=== PATIENT | female | born 1990 | race Caucasian/White ===

== ENCOUNTER 2018-03-16 | Emergency (ER) | payer MEDICAID, OTHER ==
[~2018-03-16] VITALS: Ht 172.7 cm; Wt 127.0 kg
[2018-03-16 00:07] VITALS: BP 133/72
[2018-03-16] MEDS ORDERED: ALBUTEROL FS 2.5 MG/0.5 ML VIAL.NEB NEB ONE (02:00)
[2018-03-16] MEDS ORDERED: ALBUTEROL FS 2.5 MG/0.5 ML VIAL.NEB ONE (03:35)
== END 2018-03-16 04:15 | disposition home or self-care (01) ==
LOC: ER 00:05
DX: J98.01 Acute bronchospasm (principal); R05 Cough; F10.10 Alcohol abuse, uncomplicated; F17.200 Nicotine dependence, unspecified, uncomplicated
CPT/HCPCS: 71045-TC; A4606; Z7610

== ENCOUNTER 2018-12-15 16:40 | Emergency (ER) | payer SELFPAY ==
[~2018-12-15] VITALS: Ht 167.6 cm; Wt 129.3 kg
--- NOTE | 2018-12-15 17:02 | NUR ---
PT BIB SELF C/O FLU LIKE SX; DC'D FROM [facility] LAST NIGHT, SAME SX TODAY, PT IS AAOX4, TEMP OF 103.6, NOT IN RESPIRATORY DISTRESS, KEPT RESTED AND COMFORTABLE.
--- NOTE | 2018-12-15 17:25 | NUR ---
SEEN AND EXAMINED BY PANKAJ PEÑALOZA
[2018-12-15] MEDS ORDERED: IV NS 0.9% 1,000 ML BAG IV ONE (17:30)
[2018-12-15] MEDS ORDERED: ACETAMINOPHEN 325 MG TABLET PO ONE (17:30)
[2018-12-15] MEDS ORDERED: IBUPROFEN 400 MG TABLET PO ONE (17:30)
[2018-12-15] MEDS ORDERED: ACETAMINOPHEN ES 500 MG TABLET ONE (17:33)
[2018-12-15] MEDS ORDERED: IBUPROFEN 400 MG TABLET ONE ×2 (17:33→17:34)
--- NOTE | 2018-12-15 17:50 | NUR ---
RAPID INFLUENZA TAKEN AND SENT TO LAB.
[2018-12-15 18:19] VITALS: BP 124/76
[2018-12-15] MEDS ORDERED: OSELTAMIVIR PHOSPHATE 75 MG CAPSULE ONE (18:39)
--- NOTE | 2018-12-15 18:56 | NUR ---
IV removed. Catheter intact and site benign. Pressure and 4x4 applied to site. No bleeding noted. Patient discharged to home in stable condition. Written and verbal after care instructions given. Patient verbalizes understanding of instruction.
[2018-12-15] MEDS ORDERED: OSELTAMIVIR PHOSPHATE 75 MG CAPSULE PO ONE (19:00)
== END 2018-12-15 20:06 | disposition home or self-care (01) ==
LOC: ER 16:41
DX: J11.1 Influenza due to unidentified influenza virus with other respiratory manifestations (principal); E86.0 Dehydration; F17.200 Nicotine dependence, unspecified, uncomplicated
CPT/HCPCS: 87804 ×2; 96360; 99284; A4606; J7030; 87400

== ENCOUNTER 2018-12-24 20:19 | Emergency (ER) | payer SELFPAY ==
[~2018-12-24] VITALS: Ht 172.7 cm; Wt 127.0 kg
--- NOTE | 2018-12-24 20:50 | NUR ---
PT PRESENTED TO THE ER WITH A C/O NAUSEA AND DI[employer]HEA [employer]. PT IS ALSO C/O SOB WITH COUGH/CONGESTION. PT STATED THAT SHE HAS NAUSEA, BUT NO VOMITTING. PT IS ALSO C/O A "CYST" ON HER LABIA X 2 DAYS. PT STATED THAT SHE WAS TREATED FOR THE FLU AND FINISHED THE TAMIFLU. PT HAS BEEN TAKING OTC MEDICATION S/P FLU. PT STATED THAT SHE GOT THE FLU AND HER PERIOD AT THE SAME TIME. PT STATED THAT SHE DID NOT HAVE HER PERIOD PRIOR TO THIS LAST ONE AND IS ON AN IUD. PT STATED THAT THIS IS IRREGULAR FOR HER.
[2018-12-24 21:32] LABS: APPEARANCE,URINE Clear (CLEAR); BILIRUBIN,URINE Negative (NEGATIVE); BLOOD, URINE Trace-lysed Ery/uL (NEGATIVE); COLOR,URINE Yellow (YELLOW); KETONES,URINE Negative (NEGATIVE); LEUKOCYTE ESTERASE ,URINE Negative (NEGATIVE); NITRITE, URINE Negative (NEGATIVE); PROTEIN,URINE Negative (NEGATIVE); UGLUCOSE Negative (NEGATIVE); UROBILINOGEN,URINE 0.2 EU/dL (0.2)
[2018-12-24 21:34] LABS: WBC,URINE 0-2 /HPF (0-3)
[2018-12-24 21:45] LABS: BACTERIA,URINE Few /HPF (None Seen); SQUAMOUS EPITHELIAL CELL,UR Few /HPF (None Seen)
--- NOTE | 2018-12-24 21:47 | NUR ---
VAGINAL EXAM AT THE BEDSIDE IN PROGRESS BY JONN MEEHANP-ELLIE.
[2018-12-24] MEDS ORDERED: HYDROCODONE BIT/HOMATROPINE 5 ML UDC ONE (21:55)
[2018-12-24] MEDS ORDERED: HYDROCODONE BIT/HOMATROPINE 5 ML UDC PO ONE (22:00)
--- NOTE | 2018-12-24 22:33 | NUR ---
CALLED [facility]: CXR READ
[2018-12-24] MEDS ORDERED: LIDOCAINE HCL/MPF 1% 30 ML VIAL IJ ONE (22:40)
[2018-12-24] MEDS ORDERED: DOXYCYCLINE HYCLATE (100 MG) 100 MG TABLET ONE (23:10)
[2018-12-24] MEDS ORDERED: IBUPROFEN 600 MG TABLET PO ONE ×2 (23:10→23:30)
--- NOTE | 2018-12-24 23:18 | NUR ---
I & D IN PROGRESS AT THE BEDSIDE WITH US.
[2018-12-24 23:28] VITALS: BP 130/80
--- NOTE | 2018-12-24 23:28 | NUR ---
Patient discharged to home in stable condition. Written and verbal after care instructions given. Patient verbalizes understanding of instruction AND RX. PT REC'D MEDICATION ORDERED PRIOR TO DC. PT REC'D 4X4'S AND 3 OB PADS, AN EMESIS BASIN AND A BED HERNANDEZ TO ASSIST WITH SOAKING WOUND. PT WAS UNABLE TO PUT CLOTHING ON NEAR THE WOUND AND REC'D CHUX TO PUT ON THE CAR SEAT FOR THE TRIP HOME. PT AMBULATED OUT WITH A SLOW STEADY GAIT. VSS. PT'S BOYFRIEND IS DRIVING PT HOME.
[2018-12-24] MEDS ORDERED: DOXYCYCLINE HYCLATE (100 MG) 100 MG TABLET PO ONE (23:30)
== END 2018-12-24 23:30 | disposition home or self-care (01) ==
LOC: ER 20:19
DX: L02.214 Cutaneous abscess of groin (principal); L03.314 Cellulitis of groin; J40 Bronchitis, not specified as acute or chronic; F17.200 Nicotine dependence, unspecified, uncomplicated
CPT/HCPCS: 10060; 71045; 81001; 84703; 99284; A4606; A6402 ×2; J3490; 81000-TC

== ENCOUNTER 2019-08-03 01:22 | Emergency (ER) | payer MEDICAID ==
[~2019-08-03] VITALS: Ht 172.7 cm; Wt 141.5 kg
--- NOTE | 2019-08-03 02:18 | NUR ---
CALLED PT NAME IN WR X3. NO ONE RESPONDED. WILL FOLLOW UP
[2019-08-03 02:47] VITALS: BP 125/73
[2019-08-03] MEDS ORDERED: PSEUDOEPHEDRINE HCL 30 MG TABLET ONE (03:46)
[2019-08-03] MEDS ORDERED: PSEUDOEPHEDRINE HCL 30 MG TABLET PO ONE (04:00)
== END 2019-08-03 03:48 | disposition home or self-care (01) ==
LOC: ER 01:24
DX: H60.92 Unspecified otitis externa, left ear (principal); H61.21 Impacted cerumen, right ear; F17.200 Nicotine dependence, unspecified, uncomplicated

== ENCOUNTER 2023-05-23 03:06 | Emergency (ER) | payer MEDICAID, OTHER ==
[~2023-05-23] VITALS: Ht 172.7 cm; Wt 144.7 kg
[2023-05-23 03:56] VITALS: BP 133/81; TEMP 98.1; O2SAT 99
--- NOTE | 2023-05-23 03:59 | NUR ---
BIBSELF FROM WORK C/O BILAT EYE PAIN & BLURRED VISION. USING RX ATB EYE EYE OINTMENT WITH NO RELIEF. PT A/OX4. TOLERATING R/A WELL WITH NO RESP DISTRESS.
--- NOTE | 2023-05-23 04:17 | NUR ---
EVALUATED BY DR WARNER
[2023-05-23] MEDS ORDERED: OLOP2.5D12 EACHEYE (04:21)
--- NOTE | 2023-05-23 04:34 | NUR ---
Patient discharged to home in stable condition. Rx Written and verbal after care instructions given. Patient verbalizes understanding of instruction.
== END 2023-05-23 04:35 | disposition home or self-care (01) ==
LOC: ER 03:14
DX: H10.9 Unspecified conjunctivitis (principal); F17.200 Nicotine dependence, unspecified, uncomplicated; Z60.2 Problems related to living alone

== ENCOUNTER 2023-07-07 23:29 | Emergency (ER) | payer OTHER ==
[~2023-07-07] VITALS: Ht 172.7 cm; Wt 138.3 kg
[~2023-07-07 23:29] MED LIST: OLOP2.5D12 EACHEYE
[2023-07-07 23:42] VITALS: BP 148/79; TEMP 98.3; O2SAT 98
[2023-07-07 23:55] LABS: APPEARANCE,URINE CLEAR (CLEAR); BILIRUBIN,URINE NEGATIVE (NEGATIVE); BLOOD, URINE 3+ Ery/uL (NEGATIVE); COLOR,URINE YELLOW (YELLOW); KETONES,URINE NEGATIVE (NEGATIVE); LEUKOCYTE ESTERASE ,URINE TRACE (NEGATIVE); NITRITE, URINE POSITIVE (NEGATIVE); PROTEIN,URINE 2+ mg/dl (NEGATIVE); UGLUCOSE NEGATIVE (NEGATIVE); UROBILINOGEN,URINE 0.2 EU/dL (0.2)
[2023-07-08 00:05] LABS: PREGNANCY TEST URINE QUAL NEGATIVE (NEGATIVE)
[2023-07-08 00:36] LABS: ADD URINE CULTURE YES; BACTERIA,URINE 3+ /HPF (None Seen)
[2023-07-08 00:37] LABS: RBC,URINE 21-50 /HPF (0-2)
[2023-07-08 00:39] LABS: MUCUS,URINE Moderate /LPF (None Seen)
[2023-07-08] MEDS ORDERED: NITR100C6 PO (00:46)
[2023-07-08] MEDS ORDERED: NITROFURANTOIN/MONOHYDRATE MACROCRYSTALS 100 MG CAPSULE ONE (00:50)
[2023-07-08] MEDS ORDERED: NITROFURANTOIN/MONOHYDRATE MACROCRYSTALS 100 MG CAPSULE PO ONE (01:00)
== END 2023-07-08 01:03 | disposition home or self-care (01) ==
LOC: ER 23:43
DX: N39.0 Urinary tract infection, site not specified (principal); F17.200 Nicotine dependence, unspecified, uncomplicated; Z60.2 Problems related to living alone
CPT/HCPCS: 81001; 84703-TC; 87086-TC